=== PATIENT | male | born 1995 | race Two or more races ===

== ENCOUNTER 2019-09-29 16:32 | Emergency (ER) | payer MEDICAID, OTHER ==
[~2019-09-29] VITALS: Ht 165.1 cm; Wt 47.6 kg
[2019-09-29 21:08] VITALS: BP 100/61
== END 2019-09-29 21:41 | disposition home or self-care (01) ==
LOC: ER 16:37
DX: L02.01 Cutaneous abscess of face (principal); F84.0 Autistic disorder

== ENCOUNTER 2022-07-15 10:43 | Emergency (ER) | payer MEDICAID ==
[~2022-07-15] VITALS: Ht 165.1 cm; Wt 50.0 kg
[2022-07-15 12:18] LABS: Basophils # (auto) 0 10 ^3/uL (0-0.2); Eosinophils # (auto) 0.1 10 ^3/uL (0-0.8); Hematocrit 37.4 % (41.0-53.0); Hemoglobin 12.6 g/dL (13.5-17.5); Lymphocytes # (auto) 1.2 10 ^3/uL (0.4-5.4); Lymphocytes % (auto) 26.7 % (10.0-50.0); Mean Corpuscular Hemoglobin 30.6 pg (28.0-32.0); Mean Corpuscular Hgb Conc. 33.7 g/dL (32.0-36.0); Mean Corpuscular Volume 90.7 fL (80.0-100.0); Monocytes # (auto) 0.4 10 ^3/uL (0-1.3); Monocytes % (auto) 9.1 % (0.0-12.0); Neutrophils # (auto) 2.6 10 ^3/uL (1.6-8.6); Neutrophils % (auto) 60.2 % (37.0-80.0); Red Blood Cells 4.12 10^6/uL (4.5-5.90); Red Cell Distribution Width 14.1 % (11.8-14.3); White Blood Cell 4.3 10^3/uL (4.4-10.8)
[2022-07-15 12:45] LABS: Albumin 3.6 g/dL (3.4-5.0); Calcium 8.2 mg/dL (8.5-10.1); Potassium 3.3 mmol/L (3.5-5.1)
[2022-07-15 12:49] LABS: BUN/Creatinine Ratio 16.7; Bilirubin, Total 0.3 mg/dL (0.2-1.0); Total Protein 6.6 g/dL (6.4-8.2)
[2022-07-15 13:26] LABS: Urine Bacteria NONE SEEN /hpf (None Seen); Urine Blood 3+ /uL (Negative); Urine Mucus FEW (None Seen); Urine Specific Gravity 1.018 (1.001-1.035); Urine WBC 2 /hpf (0 - 3)
[2022-07-15] MEDS ORDERED: SODIUM CHLORIDE 0.9% 500 ML IV ONE (15:00)
[2022-07-15 15:25] VITALS: BP 108/70
== END 2022-07-15 15:29 | disposition home or self-care (01) ==
LOC: ER 10:43
DX: R50.9 Fever, unspecified (principal); R31.9 Hematuria, unspecified; Q85.1 Tuberous sclerosis
CPT/HCPCS: 36415; 74176; 80053; 81001; 83605; 85025